=== PATIENT | female | born 1970 | race African-American/Black ===

== ENCOUNTER 2020-04-17 03:55 | Inpatient (IN) ==
[2020-04-17] MEDS ORDERED: SODIUM CHLORIDE 0.9% 1,000 ML IV STA (04:31)
[2020-04-17] MEDS ORDERED: INSULIN REGULAR 100 UNIT/ML SUBCUT STA ×2 (04:31→05:41)
[2020-04-17 04:41] LABS: Basophils % 0.3 % (0.0-0.8); Hematocrit 33.8 VOL% (35.7-47.0); Immature Granulocytes Absolute 0.08 #; Lymphocytes # 0.5 10*3/uL (1.4-4.0); Lymphocytes % 5.9 % (21.3-54.2); Mean Corpuscular HGB Conc 32.5 GM/DL (32-36); Mean Corpuscular Volume 85.6 FL (87-102); Mean Platelet Volume 12.2 FL (9.6-12.0); Monocytes % 5.9 % (1.7-12.7); Neutrophils % 86.9 % (38.7-73.9); Platelet Count 143 T/CUMM (130-400); Red Blood Count 3.95 MC/CUMM (3.8-5.5); Red Cell Distribution Width 12.9 % (9.3-17.3)
[2020-04-17 04:52] LABS: PT Patient Result 10.9 SECS (9.8-11.9)
[2020-04-17 05:04] LABS: Alanine Aminotransferase 17 U/L (13-56); Albumin 2.7 G/DL (3.4-5.0); Alkaline Phosphatase 116 U/L (45-117); Aspartate Amino Transferase 17 U/L (0-37); Blood Urea Nitrogen 23 MG/DL (7-18); Estimated Glom Filtration Rate 68 ML/MIN; Osmolality,Calculated 288.8 MOS/KG (273-304); Total Protein 7.7 G/DL (6.4-8.3)
[2020-04-17 05:10] LABS: Band Neutrophils 5 % (0-10); Hypochromasia 1+; Lymphocytes 3 % (20-55); Microcytosis 1+; Ovalocytes Slight; Platelet Estimate Adequate; Segmented Neutrophils 88 % (50-85); Total Cells Counted 100
[2020-04-17 05:12] LABS: Bacteria,Urine Occasional /HPF (Few); Bilirubin,Urine Negative (Negative); Blood, Urine Small mg/dL (Negative); Glucose,Urine (UA) >=500 mg/dL (Negative); Ketones,Urine 5 mg/dL (Negative); Mucus,Urine Occasional /LPF (Occasional); Nitrite,Urine Negative (Negative); Protein,Urine 100 MG/DL; RBC,Urine 5 /HPF (0-4); Squamous Epithelial Cell,Urine Occasional /HPF (0-10); Urine Appearance Slightly Hazy (Clear); Urine Color Yellow (Yellow); Urine Specific Gravity 1.025 (1.001-1.035); Urine Urobilinogen < 2.0 EU/DL (0.2-1.0); WBC,Urine 19 /HPF (0-6)
[2020-04-17 05:15] LABS: Glucose 548 MG/DL (74-106)
[2020-04-17] MEDS ORDERED: MEROPENEM 500 MG in SODIUM CHLORIDE 0.9% 100 ML IV ONE (05:15)
[2020-04-17 05:19] LABS: Barbiturates Screen,Urine Negative (Negative); Benzodiazepines Screen,Urine Negative (Negative); Cannabinoid Screen,Urine Negative (Negative); Opiate Screen,Urine Negative (Negative); Phencyclidine Screen,Urine Negative (Negative)
[2020-04-17] MEDS ORDERED: ONDANSETRON 4 MG/2 ML VIAL IV PRN (06:27)
[2020-04-17] MEDS ORDERED: GLUCAGON 1 MG VIAL IM PRN (06:27)
[2020-04-17] MEDS ORDERED: DEXTROSE 50% 25 GM/50 ML VIAL IV PRN (06:27)
[2020-04-17] MEDS: SODIUM CHLORIDE 0.9% 1,000 ML IV SCH ×2 (06:35→14:38)
[2020-04-17] MEDS ORDERED: INFLUENZA VIRUS VACCINE 0.5 ML SYRINGE IM ONE (06:47)
[2020-04-17] MEDS: INSULIN REGULAR 100 UNIT/ML SUBCUT SCH ×3 (07:06→18:30)
[2020-04-17] MEDS: PANTOPRAZOLE 40 MG TABLET PO SCH (08:17)
[2020-04-17] MEDS: DOCUSATE SODIUM 100 MG CAPSULE PO SCH ×2 (08:17→21:17)
[2020-04-17] MEDS: ENOXAPARIN 40 MG/0.4 ML SYRINGE SUBCUT SCH (08:17)
[2020-04-17] MEDS: MEROPENEM 500 MG in SODIUM CHLORIDE 0.9% 100 ML IV SCH ×3 (08:24→21:17)
[2020-04-17] MEDS: ACETAMINOPHEN 325 MG TABLET PO PRN (14:37)
[2020-04-17] MEDS ORDERED: INSULIN GLARGINE 100 UNIT/ML SUBCUT SCH (21:00)
[2020-04-18] MEDS: INSULIN REGULAR 100 UNIT/ML SUBCUT SCH ×4 (00:41→17:39)
[2020-04-18] MEDS: MEROPENEM 500 MG in SODIUM CHLORIDE 0.9% 100 ML IV SCH ×4 (03:56→20:45)
[2020-04-18 05:30] LABS: Basophils % 0.5 % (0.0-0.8); Eosinophils % 0.7 % (0.00-10.9); Hematocrit 34.9 VOL% (35.7-47.0); Hemoglobin 10.7 GM/DL (12.0-16.0); Immature Granulocytes % 0.2 %; Immature Granulocytes Absolute 0.01 #; Mean Corpuscular HGB Conc 30.7 GM/DL (32-36); Mean Corpuscular Volume 90.2 FL (87-102); Mean Platelet Volume 12.5 FL (9.6-12.0); Monocytes % 6.9 % (1.7-12.7); Neutrophils % 57.7 % (38.7-73.9); Platelet Count 152 T/CUMM (130-400); Red Blood Count 3.87 MC/CUMM (3.8-5.5); White Blood Count 5.9 T/CUMM (4-12)
[2020-04-18 05:44] LABS: Ferritin 367.5 ng/ml (8-252)
[2020-04-18 05:46] LABS: Albumin 2.4 G/DL (3.4-5.0); Bilirubin,Total 0.7 MG/DL (0.2-1.0); Osmolality,Calculated 284.7 MOS/KG (273-304); Risk Ratio 4.72; Total Protein 7.4 G/DL (6.4-8.3); VLDL CHOLESTEROL 44.8 MG/DL
[2020-04-18] MEDS: FERROUS SULFATE 325 MG TABLET PO SCH (08:34)
[2020-04-18] MEDS: GLIMEPIRIDE 2 MG TABLET PO SCH (08:34)
[2020-04-18] MEDS: ENOXAPARIN 40 MG/0.4 ML SYRINGE SUBCUT SCH (08:34)
[2020-04-18] MEDS: PANTOPRAZOLE 40 MG TABLET PO SCH (08:34)
[2020-04-18] MEDS: DOCUSATE SODIUM 100 MG CAPSULE PO SCH ×2 (08:35→20:44)
[2020-04-18] MEDS: INSULIN GLARGINE 100 UNIT/ML SUBCUT SCH ×2 (08:35→20:44)
[2020-04-18] MEDS: SODIUM CHLORIDE 0.9% 1,000 ML IV SCH ×2 (08:36→13:39)
[2020-04-18 11:03] LABS: Bacteria,Urine Occasional /HPF (Few); Bilirubin,Urine Negative (Negative); Blood, Urine Negative (Negative); Glucose,Urine (UA) >=500 mg/dL (Negative); Ketones,Urine Negative (Negative); Mucus,Urine Occasional /LPF (Occasional); Nitrite,Urine Negative (Negative); Protein,Urine 100 MG/DL; RBC,Urine 4 /HPF (0-4); Squamous Epithelial Cell,Urine Occasional /HPF (0-10); Urine Appearance CLEAR (Clear); Urine Color Yellow (Yellow); Urine Specific Gravity 1.017 (1.001-1.035); Urine Urobilinogen < 2.0 EU/DL (0.2-1.0); WBC,Urine 47 /HPF (0-6)
[2020-04-18] MEDS ORDERED: BISACODYL 10 MG SUPP RECTAL ONE (21:19)
[2020-04-19] MEDS: INSULIN REGULAR 100 UNIT/ML SUBCUT SCH ×4 (00:01→17:59)
[2020-04-19] MEDS: MAGNESIUM HYDROXIDE SUSP 30 ML UDCUP PO PRN ×2 (03:27→12:49)
[2020-04-19] MEDS: MEROPENEM 500 MG in SODIUM CHLORIDE 0.9% 100 ML IV SCH ×4 (03:27→20:42)
[2020-04-19 03:54] LABS: Basophils % 0.5 % (0.0-0.8); Hematocrit 30.8 VOL% (35.7-47.0); Hemoglobin 9.5 GM/DL (12.0-16.0); Immature Granulocytes % 0.5 %; Immature Granulocytes Absolute 0.02 #; Lymphocytes # 1.5 10*3/uL (1.4-4.0); Lymphocytes % 35.4 % (21.3-54.2); Mean Corpuscular HGB Conc 30.8 GM/DL (32-36); Mean Corpuscular Volume 88.5 FL (87-102); Mean Platelet Volume 12.3 FL (9.6-12.0); Monocytes % 8.7 % (1.7-12.7); Neutrophils % 53.9 % (38.7-73.9); Platelet Count 156 T/CUMM (130-400); Red Blood Count 3.48 MC/CUMM (3.8-5.5); Red Cell Distribution Width 12.7 % (9.3-17.3); White Blood Count 4.2 T/CUMM (4-12)
[2020-04-19 04:22] LABS: Calcium 8.9 MG/DL (8.5-10.1); Osmolality,Calculated 285.3 MOS/KG (273-304)
[2020-04-19] MEDS: ACETAMINOPHEN 325 MG TABLET PO PRN ×2 (05:38→20:43)
[2020-04-19] MEDS: DOCUSATE SODIUM 100 MG CAPSULE PO SCH ×2 (08:23→20:43)
[2020-04-19] MEDS: ENOXAPARIN 40 MG/0.4 ML SYRINGE SUBCUT SCH (08:23)
[2020-04-19] MEDS: GLIMEPIRIDE 2 MG TABLET PO SCH (08:23)
[2020-04-19] MEDS: FERROUS SULFATE 325 MG TABLET PO SCH (08:23)
[2020-04-19] MEDS: PANTOPRAZOLE 40 MG TABLET PO SCH (08:23)
[2020-04-19] MEDS: INSULIN GLARGINE 100 UNIT/ML SUBCUT SCH ×2 (08:24→20:43)
[2020-04-19] MEDS ORDERED: BISACODYL 10 MG SUPP RECTAL ONE (11:20)
[2020-04-19] MEDS: ENALAPRIL 5 MG TABLET PO SCH (12:49)
[2020-04-19] MEDS: SODIUM CHLORIDE 0.9% 1,000 ML IV SCH (16:22)
[2020-04-20] MEDS: INSULIN REGULAR 100 UNIT/ML SUBCUT SCH ×4 (01:26→17:24)
[2020-04-20] MEDS: MEROPENEM 500 MG in SODIUM CHLORIDE 0.9% 100 ML IV SCH ×4 (04:20→21:46)
[2020-04-20] MEDS: MAGNESIUM HYDROXIDE SUSP 30 ML UDCUP PO PRN (05:31)
[2020-04-20] MEDS ORDERED: SODIUM PHOSPHATE ENEMA 133 ML BOTTLE RECTAL ONE (11:14)
[2020-04-20] MEDS: ENALAPRIL 5 MG TABLET PO SCH (13:01)
[2020-04-20] MEDS: DOCUSATE SODIUM 100 MG CAPSULE PO SCH ×2 (15:18→21:45)
[2020-04-20] MEDS: INSULIN GLARGINE 100 UNIT/ML SUBCUT SCH ×2 (15:18→21:44)
[2020-04-20] MEDS: GLIMEPIRIDE 2 MG TABLET PO SCH (15:19)
[2020-04-20] MEDS: METOCLOPRAMIDE 10 MG/2 ML VIAL IV SCH (16:13)
[2020-04-20] MEDS: PANTOPRAZOLE 40 MG TABLET PO SCH (16:14)
[2020-04-20] MEDS: ENOXAPARIN 40 MG/0.4 ML SYRINGE SUBCUT SCH (16:14)
[2020-04-20] MEDS: FERROUS SULFATE 325 MG TABLET PO SCH (16:14)
[2020-04-20] MEDS: amLODIPine 5 MG TABLET PO SCH (16:59)
[2020-04-20] MEDS ORDERED: POLYETHYLENE GLYCOL POWDER 255 GM BOTTLE PO ONE (17:00)
[2020-04-20] MEDS: traMADol 50 MG TABLET PO PRN (17:44)
[2020-04-21] MEDS: INSULIN REGULAR 100 UNIT/ML SUBCUT SCH ×4 (02:41→17:46)
[2020-04-21] MEDS: MEROPENEM 500 MG in SODIUM CHLORIDE 0.9% 100 ML IV SCH ×4 (03:43→20:23)
[2020-04-21] MEDS: traMADol 50 MG TABLET PO PRN (04:05)
[2020-04-21 05:57] LABS: Basophils % 0.7 % (0.0-0.8); Hematocrit 34.3 VOL% (35.7-47.0); Hemoglobin 10.8 GM/DL (12.0-16.0); Immature Granulocytes % 0.5 %; Immature Granulocytes Absolute 0.02 #; Lymphocytes # 1.4 10*3/uL (1.4-4.0); Lymphocytes % 34.6 % (21.3-54.2); Mean Corpuscular HGB Conc 31.5 GM/DL (32-36); Mean Corpuscular Volume 87.7 FL (87-102); Mean Platelet Volume 11.4 FL (9.6-12.0); Monocytes % 7.3 % (1.7-12.7); Neutrophils % 55.9 % (38.7-73.9); Platelet Count 218 T/CUMM (130-400); Red Blood Count 3.91 MC/CUMM (3.8-5.5); Red Cell Distribution Width 12.8 % (9.3-17.3); White Blood Count 4.1 T/CUMM (4-12)
[2020-04-21 06:11] LABS: Calcium 9.3 MG/DL (8.5-10.1); Osmolality,Calculated 285.4 MOS/KG (273-304)
[2020-04-21] MEDS ORDERED: ERGOCALCIFEROL 50,000 UNIT CAPSULE PO SCH (08:00)
[2020-04-21] MEDS: PANTOPRAZOLE 40 MG TABLET PO SCH (08:15)
[2020-04-21] MEDS: DOCUSATE SODIUM 100 MG CAPSULE PO SCH ×2 (08:15→20:23)
[2020-04-21] MEDS: GLIMEPIRIDE 2 MG TABLET PO SCH ×4 (08:15→16:37)
[2020-04-21] MEDS: MAGNESIUM HYDROXIDE SUSP 30 ML UDCUP PO SCH (08:15)
[2020-04-21] MEDS: LOSARTAN 50 MG TABLET PO SCH (08:15)
[2020-04-21] MEDS: amLODIPine 5 MG TABLET PO SCH (08:17)
[2020-04-21] MEDS: FERROUS SULFATE 325 MG TABLET PO SCH (08:17)
[2020-04-21] MEDS: INSULIN GLARGINE 100 UNIT/ML SUBCUT SCH ×2 (08:18→20:23)
[2020-04-21] MEDS: ENOXAPARIN 40 MG/0.4 ML SYRINGE SUBCUT SCH (08:18)
[2020-04-21] MEDS: METOCLOPRAMIDE 10 MG/2 ML VIAL IV SCH ×3 (08:18→16:37)
[2020-04-21] MEDS: POLYETHYLENE GLYCOL POWDER 17 GM PACK PO SCH (08:19)
[2020-04-21] MEDS: ACETAMINOPHEN 325 MG TABLET PO PRN (09:07)
[2020-04-21] MEDS ORDERED: SIMVASTATIN 20 MG TABLET PO SCH (21:00)
[2020-04-22] MEDS: INSULIN REGULAR 100 UNIT/ML SUBCUT SCH ×3 (00:05→12:44)
[2020-04-22] MEDS: MEROPENEM 500 MG in SODIUM CHLORIDE 0.9% 100 ML IV SCH ×3 (03:00→15:05)
[2020-04-22] MEDS: traMADol 50 MG TABLET PO PRN (04:37)
[2020-04-22 07:19] LABS: Calcium 8.3 MG/DL (8.5-10.1); Osmolality,Calculated 281.3 MOS/KG (273-304)
[2020-04-22] MEDS: GLIMEPIRIDE 2 MG TABLET PO SCH (08:50)
[2020-04-22] MEDS: PANTOPRAZOLE 40 MG TABLET PO SCH (08:51)
[2020-04-22] MEDS: amLODIPine 5 MG TABLET PO SCH (08:51)
[2020-04-22] MEDS: LOSARTAN 50 MG TABLET PO SCH (08:51)
[2020-04-22] MEDS: FERROUS SULFATE 325 MG TABLET PO SCH (08:52)
[2020-04-22] MEDS: DOCUSATE SODIUM 100 MG CAPSULE PO SCH (08:52)
[2020-04-22] MEDS: MAGNESIUM HYDROXIDE SUSP 30 ML UDCUP PO SCH (08:52)
[2020-04-22] MEDS: ENOXAPARIN 40 MG/0.4 ML SYRINGE SUBCUT SCH (08:53)
[2020-04-22] MEDS: INSULIN GLARGINE 100 UNIT/ML SUBCUT SCH (08:54)
[2020-04-22] MEDS: METOCLOPRAMIDE 10 MG/2 ML VIAL IV SCH ×2 (08:56→12:45)
[2020-04-22] MEDS: POLYETHYLENE GLYCOL POWDER 17 GM PACK PO SCH (09:02)
[2020-04-22 12:21] VITALS: BP 142/85
== END 2020-04-22 15:44 | disposition home or self-care (01) | DRG 690 ==
LOC: N.ED 03:55 → N.EDINP 03:55 → N.5E 06:26
PROVIDERS: ADMIT Family Medicine; ATTEND Family Medicine